=== PATIENT | male | born 1995 | race Two or more races ===

== ENCOUNTER 2016-10-14 19:16 | Emergency (ER) | payer OTHER ==
[2016-10-14 19:23] VITALS: O2SAT 95
--- NOTE | 2016-10-14 19:46 | EDPHY ---
HPI/HX/ROS/PE/MDM Narrative: CHIEF COMPLAINT: "I hit my head" HPI: This otherwise healthy 21 year old male arriving with his coworker presents today following a head injury at work, sustained about 2.5 hours ago, around 17:00. He is having a difficult time describing what happened, but states he turned his head and struck his forehead against a pillar. He reports subsequent stumbling and a "spinning" sensation that has since resolved. He denies loss of consciousness but is unable to clearly describe what has happened since the injury. Per his coworker, his behavior is abnormal and he is "usually very high energy and sharp". The patient denies headache, midline neck or back pain, weakness, paresthesias, or other injuries. His coworker at bedside states this is a workers comp injury. REVIEW OF SYSTEMS: Aside from elements discussed in the HPI, a comprehensive 10-point review of systems was reviewed and is negative. 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 PHYSICAL EXAM: General:Patient is alert, in no acute distress. Head: Atraumatic. ENT:Eyes are normal to inspection. ENT inspection normal. Neck: Normal inspection. Full range of motion. Respiratory:No respiratory distress. Breath sounds normal bilaterally. Cardiovascular: Regular rate and rhythm. Strong peripheral pulses. Normal cap refill. Abdomen:The abdomen is nontender to palpation. There are no peritoneal signs. Back: Normal to inspection. No tenderness to palpation. Skin: Normal color. No rash. Warm and dry. Extremities: Normal appearance. Full range of motion. Neuro: Oriented x3. Normal motor function. Normal sensory function. No pronator drift. Face symmetric. Normal speech. ED Course: This is a healthy 21 year old male who presents for evaluation of a head injury that occurred at work. He is neurovascularly intact on exam, but due to his apparent confusion about the incident and his coworker's report of abnormal cognitive behavior, I recommended head imaging to rule out acute intracranial processes. 20:[address] is negative per Dr. Ruiz, radiologist. I discussed these results with the patient. I recommended standard concussion care and referred him to Dr. Dolan if needed for persistent symptoms. Return precautions discussed. He understands he needs to follow up with a workers comp clinic as directed by his HR department. - Data Points Imaging Results: Imaging Impressions Head CT 10/14/16 19:35 Impression: Normal. I telephoned results to Jane, taking messages for Dr. Lemus, at 2005 hours. Imaging: Discussed imaging studies w/ bilingual call center representative Radiologist General Time Seen by Provider: 10/14/16 19:24 Initial Vital Signs: Initial Vital Signs Temperature (C) 36.6 C 10/14/16 19:21 Heart Rate 72 10/14/16 19:21 Respiratory Rate 16 10/14/16 19:21 Blood Pressure 158/102 H 10/14/16 19:21 O2 Sat (%) 95 10/14/16 19:21 O2 Delivery Mode Room Air Allergies/Adverse Reactions: No Known Allergies Allergy (Unverified 10/14/16 19:21) Home Medications: Medication Instructions Recorded NK [No Known Home Meds] 10/14/16 Departure - Departure Disposition: Home, Routine, Self-Care Clinical Impression: Concussion Qualifiers: Encounter type: initial encounter Loss of consciousness presence/duration: without LOC Qualified Code(s): S06.0X0A - Concussion without loss of consciousness, initial encounter Head injury Qualifiers: Encounter type: initial encounter Qualified Code(s): S09.90XA - Unspecified injury of head, initial encounter Condition: Good Instructions: Concussion (ED), Head Injury (ED) Additional Instructions: 1. Brain rest. Avoid screen time when possible including TV, phones, video games , and computers while symptoms are present. 2. Physical rest. Avoid activities that could lead to another head injury while symptoms are present, including contact sports, biking, skiing, or climbing. 3. Okay to use Tylenol or ibuprofen as directed as needed for pain for the next 5-7 days. 4. Slowly reintroduce activities as tolerated. If symptoms worse, reduce activities. Concussion symptoms may last anywhere from a few days to a few weeks. 5. Follow up with Dr. Dolan, head injury specialist, for symptoms not improved in two weeks. 6. Follow up with the appropriate workers comp clinic as directed by your HR department. 7. Return for severe headache, vision changes, weakness or numbness on one side of your body, or other worsening of condition. Referrals: NONE *PRIMARY CARE P,. [Primary Care Provider] - As per Instructions Orquidea Dolan MD [Medical Doctor] - As per Instructions Print Language: [place] Zealander Report Scribed for: Panchito Lemus Report Scribed by: Amber Allen Date of Report: 10/14/16 Time of Report: 19:46 Physician Review and Approval Statement: Portions of this note were transcribed by an ED scribe. I personally performed the history, physical exam, and medical decision making; and confirm the accuracy of the information in the transcribed note.
[2016-10-14 20:25] VITALS: BP 125/69; PULSE 82; RESP 20; TEMP 98.8
== END 2016-10-14 20:26 | disposition home or self-care (01) ==
DX: S06.0X0A Concussion without loss of consciousness, initial encounter (principal); W01.198A Fall on same level from slipping, tripping and stumbling with subsequent striking against other object, initial encounter; Y92.69 Other specified industrial and construction area as the place of occurrence of the external cause; Y99.0 Civilian activity done for income or pay; Y93.89 Activity, other specified